=== PATIENT | female | born 1945 | race Caucasian/White ===

== ENCOUNTER 2019-11-29 06:31 | Day surgery (SDC) | payer MEDICARE, OTHER, SELFPAY ==
[2019-11-26 09:29] VITALS: BMI 29.2
[2019-11-29 06:52] VITALS: BP 147/89; PULSE 89; RESP 16; TEMP 36.6; O2SAT 94
--- NOTE | 2019-11-29 06:55 | PM.HPUD ---
H&P update H&P Update: DATE OF SURGERY/PROCEDURE: 11/29/19 DATE H&P PERFORMED: 11/02/19 H&P UPDATE INFORMATION: H&P completed within last 30 days and No changes to prior documentation PLANNED PROCEDURE: Operation Date: 11/29/19 07:30 Proposed Procedures p EGD/COLON 22043,29770/ R93.89(Not Applicable) - Angus Rodriguez MD s Colonoscopy(Not Applicable) - Angus Rodriguez MD Full H&P Perinent History: Social History: Social History Smoking and tobacco status: never smoked
[2019-11-29] MEDS: sodium chloride 0.9% 1,000 ML 30 ML (07:01)
--- NOTE | 2019-11-29 07:23 | ANES.PREANES ---
Pre-Anesthetic Assessment Pre-Anesthetic Assessment: Height/Weight: Height 1.6 m Weight 74.843 kg Temp Pulse Resp BP Pulse Ox 97.9 F 89 16 147/89 94 11/29/19 06:52 11/29/19 06:52 11/29/19 06:52 11/29/19 06:52 11/29/19 06:52 Preop Diagnosis: abn CT Proposed Procedure: Operation Date: 11/29/19 07:30 Proposed Procedures p EGD/COLON 29749,11940/ R93.89(Not Applicable) - Angus Rodriguez MD s Colonoscopy(Not Applicable) - Angus Rodriguez MD Was Beta Amrik taken within 24 hours: N/A Last intake: Intake Last Liquid Date 11/28/19 Last Liquid Time 20:00 Last Solid Date 11/28/19 Last Solid Time 07:00 Last Intake: 20:00 Exam: Pre-Anes Outpt Exam: alert, oriented x 3, clear to auscultation bilaterally and regular rate & rhythm Pulmonary: Pulmonary: None reported CV/HEM: CV/HEM: None reported : : None reported Hepatic: Hepatic: None reported GI: GI: GERD (occ) Metabolic: Metabolic: Thyroid Musc/skel: Musc/skel: OA/DJD Anesthetic Plan: ASA status: II Anesthesia: MAC Risk of > 500 ml blood loss (7ml/kg in children): No PFSH Anesthesia PFSH: Social History (Updated 11/26/19 @ 09:28 by Rajwinder Torrez RN) Smoking and tobacco status: never smoked Data Anesthesia Cardiac Studies: No Data to Display
[2019-11-29 07:56] VITALS: BP 117/70; PULSE 72; RESP 16; TEMP 37.2; O2SAT 94
[2019-11-29 08:09] VITALS: BP 129/71; PULSE 76; RESP 16; O2SAT 95
--- NOTE | 2019-11-29 08:10 | ANE.PACU ---
 Inpatient post-anesthesia follow up: Airway intact: Yes Vital signs: Temperature 98.9 F Pulse Rate [Bilate ral Radial] 76 Respiratory Rate 16 Blood Pressure [Le ft Arm] 129/71 Pulse Oximetry 95 Oxygen Delivery Me thod Room Air Oxygen Flow Rate Fraction of Inspir ed Oxygen Hydration adequate: Yes Nausea and vomiting: No Pain level: 1 Mental status: Baseline
== END 2019-11-29 08:30 | disposition home or self-care (01) ==
PROVIDERS: Family Provider Nurse Practitioner Family; Visit Provider Surgery
PROC: 0DJ08ZZ Inspection of Upper Intestinal Tract, Via Natural or Artificial Opening Endoscopic (ICD-10-PCS; CPT 43235; principal; 2019-11-29 07:30)
PROC: 0DJD8ZZ Inspection of Lower Intestinal Tract, Via Natural or Artificial Opening Endoscopic (ICD-10-PCS; CPT 45378; 2019-11-29 07:30)
DX: R93.5 Abnormal findings on diagnostic imaging of other abdominal regions, including retroperitoneum (principal); K57.30 Diverticulosis of large intestine without perforation or abscess without bleeding; K21.9 Gastro-esophageal reflux disease without esophagitis; M19.90 Unspecified osteoarthritis, unspecified site; M19.012 Primary osteoarthritis, left shoulder; M16.11 Unilateral primary osteoarthritis, right hip
CPT/HCPCS: 12345; 43235; 96365; G0121; J2704; J7030

== ENCOUNTER 2020-06-30 10:15 | Outpatient (CLI) | payer MEDICARE, OTHER, SELFPAY ==
--- NOTE | 2020-06-30 10:22 | MM_ITS ---
WS: [id number] BILATERAL DIAGNOSTIC MAMMOGRAM WITH MIAN DISPLACEMENT VIEWS. CAD PERFORMED. RIGHT breast ultrasound, limited HISTORY: UNSPEC LUMP IN RT BREAST, possible implant rupture. COMPARISON: None available. Bilateral craniocaudal and mediolateral like views are performed. Mian displacement views in CC and MLO projection also performed. Breasts composition: There are scattered areas of fibroglandular density. Triangular marker is place d over the anterior inferior RIGHT breast. There is no underlying lesion identified. With spot compre ssion views there is normal fibroglandular densities. Both implants are prepectoral and appear to be intact. No significant capsular contraction. No extravasation from the implants. The surfaces of the implants are slightly lobulated which could be due to aging. RIGHT breast ultrasound, limited. Ultrasound is directed to the palpable area of the RIGHT breast near 6:00. There is no underlying mas s. Double layer of the outer shell is intact. No stepladder sign within the implants to suggest capsu lar rupture. MM/[place] [id number] IMPRESSION: BI-RADS: 2-Benign FOLLOW-UP: 1 Year Follow-up No implant rupture identified.
== END 2020-06-30 10:16 | disposition home or self-care (01) ==
LOC: RADSHAW 10:20
PROVIDERS: PCP Nurse Practitioner Family; Visit Provider Nurse Practitioner Family
DX: N63.25 Unspecified lump in the left breast, overlapping quadrants (principal)
CPT/HCPCS: 76642; 77066

== ENCOUNTER 2021-02-16 13:39 | Emergency (ER) | payer MEDICARE, OTHER, SELFPAY ==
[2021-02-16 13:53] VITALS: BP 143/78; PULSE 88; RESP 16; TEMP 36.8; O2SAT 96; BMI 27.6
--- NOTE | 2021-02-16 14:06 | CTR_ITS ---
PROCEDURE INFORMATION: Exam: CT Abdomen And Pelvis With Contrast Exam date and time: 02/16/2021 3:07 PM Age: 76 years old Clinical indication: Abdominal pain; Localized; Prior surgery; Surgery type: Hyst; Patient HX: Right sided abd pain x 3 days TECHNIQUE: Imaging protocol: Computed tomography of the abdomen and pelvis with contrast. Total images: 229 Radiation optimization: All CT scans at this facility use at least one of these dose optimization techniques: automated exposure control; mA and/or kV adjustment per patient size (includes targeted exams where dose is matched to clinical indication); or iterative reconstruction. Contrast material: 300; Contrast volume: 95 ml; Contrast route: INTRAVENOUS (IV); COMPARISON: CT abdomen pelvis w con* [id number] 09/24/2019 11:57 AM RADIATION DOSE METRICS: Total DLP (mGy-cm): 1214.03 FINDINGS: Lungs: Limited assessment of the lung bases fails to reveal evidence for active cardiopulmonary process. Mild senile fibrosis. Liver: Within the lateral segment left hepatic lobe is a 13 mm enhancing structure that has increased in size since last evaluation 09/24/2018. Probable cavernous hemangioma; however, would recommend follow-up imaging with either three-phase computed tomography of the liver or MRI of the liver for further assessment and characterization to exclude a potential for metastatic focus. Remainder the liver otherwise unremarkable. No other hepatic mass or cystic structure identified. Gallbladder and bile ducts: Findings consistent with acute acalculous cholecystitis. The gallbladder is markedly abnormal in appearance and presentation. Diffuse gallbladder wall thickening with increased enhancement. Pericholecystic fluid. Small amount of gallbladder sludge. No formed cholelithiasis, however. No visible associated intra or extrahepatic biliary ectasia. Pancreas: Pancreas unremarkable for age. No visible pancreatic ductal ectasia. Partial fatty replaced the pancreas. Spleen: Scattered splenic calcifications of antecedent disease. Adrenal glands: Adrenal glands unremarkable. Kidneys and ureters: No hydronephrosis or perinephric fluid. No visible nephrolithiasis or visible ureterolithiasis. Rare small simple renal cortical cysts. No follow-up recommended. Stomach and bowel: Extensive diverticulosis coli without visible evidence of acute diverticulitis. Nonobstructive bowel pattern. No visible adynamic or reactive ileus. Appendix: No evidence of appendicitis. Intraperitoneal space: No visible evidence of mesenteric lymphadenitis or active mesenteritis/panniculitis. No visible pneumoperitoneum or intraperitoneal ascites. Vasculature: Portal vein patent. The abdominal aorta is nonaneurysmal. Mild arterial sclerotic disease. Lymph nodes: No current visible evidence of active mesenteric or retroperitoneal lymphadenopathy. Urinary bladder: Unremarkable as visualized. Reproductive: Status post hysterectomy. Bones/joints: No visible active or acute osseous abnormality. Scoliosis. 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 Facet arthrosis. Osteopenia. Advanced primary osteoarthritis of the right hip. Soft tissues: Bilateral breast implants. CT/CT abdomen pelvis w con* [id number] IMPRESSION: 1. Findings consistent with acute acalculous cholecystitis. 2. Within the lateral segment left hepatic lobe is a 13 mm enhancing structure that has increased in size since last evaluation 09/24/2018. Probable cavernous hemangioma; however, would recommend follow-up imaging with either three-phase computed tomography of the liver or MRI of the liver for further assessment and characterization to exclude a potential for metastatic focus. 3. Extensive diverticulosis coli without visible evidence for acute diverticulitis. 4. Other nonurgent, nonemergent, chronic, postoperative, and age related findings as detailed in text above. COMMENTS: Consistent with the [employer]'s Incidental Findings Committee white paper (J Am Andrew Radiol 2018): Any incidental renal lesion less than 1 cm or classified as too small to characterize, or any incidental cystic renal lesion characterized as simple-appearing, is likely benign. No follow-up imaging is recommended for these lesions per consensus recommendations based on imaging criteria. Radiation Dose CTDIVOL = (mGy): DLP = 1214.03 (mGy-cm)
--- NOTE | 2021-02-16 14:12 | W.ED.ABDPA2 ---
HPI - Abdominal Pain General: Chief Complaint: Abdominal Pain Stated Complaint: abd pain Time Seen by Provider: 02/16/21 13:54 History of Present Illness: HPI narrative: 76-year-old female presents to the emergency room with complaint of right lower quadrant abdominal pain has been going on for last 3 days she denies nausea or vomiting or diarrhea pain is worse with movement. She denies dysuria urgency or frequency no hematochezia or melena MD elicited complaint: abdominal pain Onset (ago): day(s) Pain Consistency: intermittent Location: RLQ Severity: moderate Quality: cramping Exacerbating factors: movement Relieving factors: nothing Associated Symptoms: Reports GI cramping and nausea; Denies anorexia, belching, bloating, change in bowel habits, change in stool character, chills, coffee ground emesis, constipation, diarrhea, dyspepsia, dysuria, excessive flatus, fever(s), heartburn, hematochezia, hematuria, hematemesis, fecal incontinence, loose stools, melena, poor appetite, syncope and vomiting Review of Systems Const: Denies: fever(s) or chills ENMT: Denies: throat pain, ear or mastoid pain, nasal discharge or nasal congestion Card: Denies: syncope Resp: Denies: dyspnea, productive cough or non-productive cough GI: Reports: nausea and GI cramping; Denies: vomiting, hematemesis, coffee ground emesis, heartburn, diarrhea, constipation, bloating, belching, excessive flatus, fecal incontinence, change in bowel habits, change in stool character, hematochezia or melena : Denies: hematuria Skin/Breast: Denies: rash or pruritus [facility] ED PFSH: Medical History Diverticulosis Hypothyroidism Surgical History H/O esophagogastroduodenoscopy 11/29/2019: Normal History of colonoscopy 11/29/2019: Severe diverticulosis sigmoid colon Social History Smoking and tobacco status: never smoked Physical Exam Const: COMMON NORMALS: no acute distress GENERAL APPEARANCE: cooperative and comfortable ORIENTATION/CONSCIOUSNESS: Yes awake, Yes oriented to person, Yes oriented to place and Yes oriented to time HENMT: COMMON NORMALS: normocephalic, atraumatic and hearing grossly normal bilaterally HEAD & SCALP: normocephalic and atraumatic Eye: COMMON NORMALS: Equal, round and reactive pupils present, EOMs intact bilaterally, conjunctivae normal and no scleral icterus CONJUNCTIVA: Yes conjunctivae normal PUPIL: Yes Equal, round and reactive pupils present Neck/C-Spine: COMMON NORMALS: no JVD Cardio: COMMON NORMALS: no JVD, regular rate, regular rhythm and No murmurs present (Cardio) RATE: regular rate RHYTHM: regular rhythm GI: COMMON NORMALS: Soft to palpation and No hepatosplenomegaly present AUSCULTATION: Yes normoactive bowel sounds PALPATION: Yes Soft to palpation, No Tenderness to palpation present (GI), No Guarding due to palpation present (GI) and Yes No hepatosplenomegaly present Extremity: COMMON NORMALS: normal to inspection, capillary refill normal, no clubbing, cyanosis or edema, no calf tenderness and no pedal edema Neuro: SENSORIUM/ORIENTATION: Yes oriented to person, Yes oriented to place and Yes oriented to time Skin: COMMON NORMALS: no rashes or lesions noted GENERAL SKIN EXAM: no rashes or lesions noted Course Vital Signs: Vital signs: Vital Signs Temperature 98.2 F 02/16/21 13:53 Pulse Rate 77 02/16/21 16:46 Respiratory Rate 18 02/16/21 16:46 Blood Pressure 135/83 02/16/21 16:46 Pulse Oximetry 92 02/16/21 16:46 MDM - Abdominal Pain MDM Narrative: Medical decision making narrative: Patient complaining of low lower abdominal pain mostly in the right lower quadrant she does not really have any upper abdominal pain negative Sarah sign repeat exam still unremarkable liver functions are normal white count is normal she does have a what looks like a simple bladder infection which is consistent with presenting complaints. However on the CT there is some concerning findings prickly around the gallbladder markedly abnormal appearance diffuse wall thickening increased enhancement there is an enhancing structure that is increased in size from her previous exam in September 2018. We will treat her for her cystitis today. Referral made to general surgery for further evaluation of the liver abnormality. Lab Data: Labs: Lab Results 02/16/21 02/16/21 02/16/21 Range/Units 14:20 14:20 15:15 WBC 6.2 (4.0-10.0) 10^3/ uL RBC 4.07 L (4.1-5.3) 10^6/u L Hgb 13.2 (11.5-15.3) g/dL Hct 38.1 (37.0-47.0) % MCV 93.6 (81-99) fL MCH 32.4 (28.0-34.0) pg MCHC 34.6 (30.0-36.0) g/dL RDW 11.9 L (12.1-15.1) % Plt Count 134 (130-400) 10^3/c mm MPV 11.5 H (7.4-10.4) fL Neut % (Auto) 70.9 % Lymph % (Auto) 17.7 % Woodward % (Auto) 9.5 % Eos % (Auto) 1.0 % Baso % (Auto) 0.3 % Neut # (Auto) 4.41 (1.8-7.7) 10^3/u L Lymph # (Auto) 1.1 (0.8-4.8) 10^3/u L Woodward # (Auto) 0.6 (0.2-0.9) 10^3/u L Eos # (Auto) 0.1 (0.0-0.8) 10^3/u L Baso # (Auto) 0.0 (0.0-0.1) 10^3/u L Nucleated RBC % (a uto) 0 % Nucleated RBCs # 0.0 /100WBC Sodium 136 (136-145) mmol/L Potassium 3.7 (3.5-5.1) mmol/L Chloride 101 (98-107) mmol/L Carbon Dioxide 23 (22-29) mmol/L Anion Gap 15.7 (5-19) BUN 11 (8-23) mg/dL Creatinine 0.7 (0.5-0.9) mg/dL GFR Calculation Not Reportable Glucose 83 (65-115) mg/dL Calculated Osmolal ity 281 L (285-295) mOsm/k g Calcium 8.7 (8.5-10.5) mg/dL Total Bilirubin 0.8 (0.15-1.2) mg/dL AST 18 (0-32) U/L ALT 13 (0-33) U/L Alkaline Phosphata se 110 H (35-105) IU/L Total Protein 7.1 (6.6-8.7) g/dL Albumin 3.8 (3.5-5.2) g/dL Globulin 3.3 (1.3-4.6) g/dL Lipase 13 (13-60) U/L Urine Color Yellow (Yellow) Urine Appearance Clear (CLEAR) Urine pH 5 (5-7) Ur Specific Gravit y 1.020 (1.005-1.030) Urine Protein Neg (Negative) Urine Glucose (UA) Norm (Normal) Urine Ketones 1+ H (Negative) Urine Blood 2+ H (Negative) Urine Nitrate Negative (Negative) Urine Bilirubin Neg (Negative) Urine Urobilinogen Norm (Negative) mg/dL Ur Leukocyte Jayla ase 1+ H (Negative) Urine RBC 0-4 H (0-2) /hpf Urine WBC 15-25 H (0-5) /hpf Ur Squamous Epith Cells 10-15 H (0-5) /hpf Amorphous Sediment Not Reportable Urine Bacteria 1+ H (NONE) /hpf Discharge Plan Discharge Patient Disposition: Home Clinical Impression: Cystitis, Abnormal finding on imaging of liver Condition: Stable Prescriptions: New Cipro 250 mg tablet 250 mg PO BID Qty: 14 RF: 0 No Action levothyroxine [Synthroid] 75 mcg Tablet 75 mcg PO DAILY@0400 RF: 0 One-A-Day Women's Complete 18 mg-400 mcg- 25 mcg Tablet 1 tab PO DAILY@0400 RF: 0 Super B Complex 1 tab PO DAILY@0400 RF: 0 Vitamin C 1 tab PO DAILY@0400 RF: 0 Vitamin D3 1 tab PO DAILY@0400 RF: 0 calcium 1 tab PO DAILY@0400 RF: 0 Discharge Orders: Discharge ED (Routine); Ordered 02/16/21 Ordered By: Octaviano Winkler Discharge Diet: Usual diet Discharge Activity: Resume usual activity Patient Instructions: Opioid Safety Activity Restrictions/Additional Instructions: Follow-up with your primary care provider if not improving Coding Level of Care Code ED Research Fellow for Dino Caballero
[2021-02-16 14:26] LABS: Basophils % 0.3 %; Eosinophils # 0.1 10^3/uL (0.0-0.8); Hematocrit 38.1 % (37.0-47.0); Hemoglobin 13.2 g/dL (11.5-15.3); Lymphocytes # 1.1 10^3/uL (0.8-4.8); Lymphocytes % 17.7 %; Mean Corpuscular HGB Conc 34.6 g/dL (30.0-36.0); Mean Corpuscular Hemoglobin 32.4 pg (28.0-34.0); Mean Corpuscular Volume 93.6 fL (81-99); Mean Platelet Volume 11.5 fL (7.4-10.4); Monocytes # 0.6 10^3/uL (0.2-0.9); Monocytes % 9.5 %; Neutrophils # 4.41 10^3/uL (1.8-7.7); Neutrophils % 70.9 %; Nucleated Red Blood Cells % 0 %; Platelet Count 134 10^3/cmm (130-400); Red Blood Count 4.07 10^6/uL (4.1-5.3); Red Cell Distribution Width 11.9 % (12.1-15.1); White Blood Count 6.2 10^3/uL (4.0-10.0)
[2021-02-16 14:48] LABS: Alanine Aminotransferase 13 U/L (0-33); Albumin Level 3.8 g/dL (3.5-5.2); Alkaline Phosphatase 110 IU/L (35-105); Anion Gap 15.7 (5-19); Aspartate Amino Transferase 18 U/L (0-32); Blood Urea Nitrogen 11 mg/dL (8-23); Calcium 8.7 mg/dL (8.5-10.5); Carbon Dioxide 23 mmol/L (22-29); Chloride 101 mmol/L (98-107); Globulin 3.3 g/dL (1.3-4.6); Glucose 83 mg/dL (65-115); Lipase 13 U/L (13-60); Osmolality Calculated 281 mOsm/kg (285-295); Potassium 3.7 mmol/L (3.5-5.1); Sodium 136 mmol/L (136-145); Total Bilirubin 0.8 mg/dL (0.15-1.2); Total Protein 7.1 g/dL (6.6-8.7)
[2021-02-16] MEDS: iohexol 300 mg/mL 100 mL Btl IV (15:29)
[2021-02-16 16:05] LABS: Add Urine Microscopic? YES; Bilirubin Urine Neg (Negative); Blood Urine 2+ (Negative); Glucose Urine UA Norm (Normal); Ketones Urine 1+ (Negative); Leukocyte Esterase Urine 1+ (Negative); Nitrate Urine Negative (Negative); Protein Urine Neg (Negative); Urine Appearance Clear (CLEAR); Urine Color Yellow (Yellow); Urobilinogen Urine Norm (Negative); pH Urine 5 (5-7)
[2021-02-16 16:16] LABS: Add Urine Culture? No; Bacteria Urine 1+ /hpf; RBC Urine 0-4 /hpf (0-2); WBC Urine 15-25 /hpf (0-5)
[2021-02-16] MEDS: cefTRIAXone 1,000 MG in lidocaine 1% 2.1 ML 1 MG IM (16:41)
[2021-02-16 16:46] VITALS: BP 135/83; PULSE 77; RESP 18; O2SAT 92
--- NOTE | 2021-02-21 09:24 | DCPLANNER ---
casino cage manager had message to schedule a follow up appointment for patient with general surgery. casino cage manager emailed patients information to both Daya and Mariam at [facility] General Surgery. Patients information would be printed and reviewed. Clinic will call patient with appointment information. casino cage manager also had message to schedule an outpatient MRI for patient. casino cage manager will get a signed order and will fax it to centralized scheduling. casino cage manager will call for appointment information.
--- NOTE | 2021-02-23 13:41 | DCPLANNER ---
Patient has a follow up appointment scheduled for Friday, February 26, 2021 at 3:[address] Brantley at [facility] General Surgery. Clinic will call patient with appointment information.
--- NOTE | 2021-02-27 15:09 | DCPLANNER ---
Patient had a follow up appointment scheduled for 02.26.21 at 3:[address] Moon at general surgery - patient did attend appointment.
== END 2021-02-16 16:47 | disposition home or self-care (01) ==
PROVIDERS: Emergency Provider Family Medicine
DX: N30.90 Cystitis, unspecified without hematuria (principal); R93.2 Abnormal findings on diagnostic imaging of liver and biliary tract
CPT/HCPCS: 74177; 80053; 81000; 81001; 83690; 85025; 87086; 96374; 96375; 99283; J0696; Q9967

== ENCOUNTER 2021-03-09 07:52 | Outpatient (CLI) | payer MEDICARE, OTHER, SELFPAY ==
--- NOTE | 2021-03-09 08:00 | MR_ITS ---
WS: [id number] MRCP (MAGNETIC RESONANCE CHOLANGIOPANCREATOGRAPHY) HISTORY: R10.9 - Unspecified abdominal pain COMPARISON: CT 02/16/2021 TECHNIQUE: Multiple sequences are performed to evaluate the intra and extrahepatic ducts. Mild gallbladder wall thickening. There is a large stone in the central gallbladder. There is a addit ional stone in the gallbladder neck. Does not appear to be within the cystic duct but very closely as sociated with the cystic duct. Cystic duct and common bile duct remain normal size. There is no pancr eatic duct abnormality. Common bile duct measures 5 mm. Mixed signal intensity 13 mm lesion in the la teral segment LEFT lobe of liver was recently described by CT. MRCP is not the study of choice to baljinder luate liver lesions. No ascites. No pleural effusions are identified. There are bilateral breast implants. No adrenal mass es. Small exophytic cysts from the mid RIGHT kidney with the largest measuring 8 mm. MR/MR MRCP [id number] IMPRESSION: 1. Cholelithiasis without acute cholecystitis or bile duct dilatation. 2. Normal common bile duct. 3. 13 mm hepatic lesion is probably hemangioma as noted on a prior CT of 2020.
== END 2021-03-09 07:53 | disposition home or self-care (01) ==
LOC: RADSHAW 07:56
PROVIDERS: PCP Nurse Practitioner Family; Visit Provider Surgery
DX: R10.9 Unspecified abdominal pain (principal); K80.20 Calculus of gallbladder without cholecystitis without obstruction; K76.9 Liver disease, unspecified
CPT/HCPCS: 74181

== ENCOUNTER 2021-03-12 07:40 | Outpatient (CLI) | payer MEDICARE, OTHER, SELFPAY ==
--- NOTE | 2021-03-12 08:00 | NM_ITS ---
WS: [id number] NUCLEAR MEDICINE HIDA SCAN WITH GALLBLADDER EJECTION FRACTION HISTORY: R10.9 - Unspecified abdominal pain COMPARISON: 02/16/2021 CT. TECHNIQUE: The patient was intravenously injected with 7.6 mCi of TC99m Mebrofenin. Immediate imaging over the right upper quadrant was followed by 5 minute image and additional images for a total of 60 minutes. Normal uptake of radiotracer throughout the liver. Activity identified in the gallbladder at 40 minutes and never distends well. Activity in the proximal small bowel was seen by 30 minutes. Good washout of the radiotracer from the liver by 60 minutes. The patient then drank 8 ounces of Ensure Plus. Ejection fraction at 60 minutes was 66%. Normal GB ej ection fraction is 35-75%. Post fatty meal symptoms: None. NM/NM hepatobiliary w phar* [id number] IMPRESSION: 1. Gallbladder never distends well with the radionuclide. Cholelithiasis was i dentified on a prior study. Findings are suspicious with cholecystitis. Partial cystic duct obstruction should be considered and this could be chronic. There is no hyperemia at the gallbladder fossa. 2. Gallbladder never distends well. The ejection fraction obtained is not accu rate.
== END 2021-03-12 07:41 | disposition home or self-care (01) ==
LOC: RAD 07:42
PROVIDERS: PCP Nurse Practitioner Family; Visit Provider Surgery
DX: R10.9 Unspecified abdominal pain (principal)
CPT/HCPCS: 78227; A9537

== ENCOUNTER 2021-07-27 03:57 | Emergency (ER) | payer MEDICARE, SELFPAY ==
[2021-07-27] VITALS (7 sets, daily range): BP systolic 137–167; BP diastolic 85–107; PULSE 73–101; RESP 16–21; TEMP 36.5; O2SAT 91–97; BMI 27.4
--- NOTE | 2021-07-27 04:16 | ECG_ITS ---
[facility] Test Date: 2021-07-27 Pat Name: Margy Yap Department: Room: Gender: Female Railroad Worker: : 1945 Requested By: Alicia Hernández Order Number: [id number] Reading MD: RAND WALTON Measurements Intervals [place] Rate: 76 P: 38 AK: 173 QRS: 19 QRSD: 78 T: 27 QT: 362 QTc: 409 Interpretive Statements SINUS RHYTHM Compared to ECG 12/30/2017 07:29:46 No significant changes Electronically Signed On 07-27-2021 15:41:22 CDT by RAND WALTON [email or web address]
--- NOTE | 2021-07-27 04:16 | XRR_ITS ---
PROCEDURE INFORMATION: Exam: XR Chest Exam date and time: 07/27/2021 4:16 AM Age: 76 years old Clinical indication: Dyspnea and shortness of breath; Prior surgery; Surgery type: Shoulder; Patient HX: Worsening SOB and dyspnea. Covid +. TECHNIQUE: Imaging protocol: XR of the chest. Views: 1 view. COMPARISON: CR Chest 2 views* [id number] 01/20/2018 8:32 AM FINDINGS: Lungs: Bibasilar opacities which could be secondary to atelectasis or pneumonia. Pleural spaces: Unremarkable. No pleural effusion. No pneumothorax. Heart/Mediastinum: Unremarkable. No cardiomegaly. Bones/joints: Unremarkable. XR/XR chest 1V portable [id number] IMPRESSION: Bibasilar opacities which could be secondary to atelectasis or pneumonia.
--- NOTE | 2021-07-27 04:23 | ED_ITS ---
Documented by User: Alicia Hernández MD 07/27/21 05:11 HPI - COVID General: Chief Complaint: COVID symptoms Stated Complaint: Covid +\Sob Time Seen by Provider: 07/27/21 04:08 Source: patient Mode of arrival: ambulatory Limitations: no limitations Triage information: Has fever, cough or shortness of breath . Exposure to COVID + person last 14 days History of Present Illness: HPI Narrative: 76-year-old female who states she been having shortness of breath over the last 2 weeks. States she had diagnosed with Covid roughly 9 days ago. States that the dyspnea is worsened over the last week. States that she had slight increase today and her son and made her came in because he is getting worried about her. She states that her dyspnea is mild in nature pulse ox was 88% on room air she is doing well here on 2 L. She denies any cough or fevers. She is in no severe distress here. Denies any vomiting or diarrhea. Denies any pain anywhere. COVID 19 common symptoms: positive dyspnea; negative fever(s), chills, body aches, headache(s), throat pain, nausea, vomiting or diarrhea COVID 19 other sytmptoms: negative chest pain COVID Results: No Data to Display Review of Systems Const: Denies: fever(s), chills, body aches or change in appetite Eyes: Denies: blurry vision or eye discomfort ENMT: Denies: throat pain or dental pain Card: Denies: chest pain Resp: Reports: dyspnea GI: Denies: abdominal pain, nausea, vomiting or diarrhea : Denies: dysuria Musc: Denies: neck pain or back pain Skin/Breast: Denies: rash Neuro: Denies: headache(s) Psych: Denies: depression David/Lymph: Denies: easy bruising All/Imm: Denies: urticaria PFSH ED PFSH: Medical History (Updated 07/27/21 @ 06:18 by Octaviano Winkler DO) COVID-19 Diverticulosis Hypothyroidism Pulmonary embolism Surgical History H/O esophagogastroduodenoscopy 11/29/2019: Normal History of colonoscopy 11/29/2019: Severe diverticulosis sigmoid colon Social History Smoking and tobacco status: never smoked Physical Exam Const: COMMON NORMALS: no acute distress, patient oriented x3 and healthy appearing HENMT: COMMON NORMALS: normocephalic and atraumatic HEAD & SCALP: normocephalic and atraumatic Eye: COMMON NORMALS: Equal, round and reactive pupils present and EOMs intact bilaterally PUPIL: Yes Equal, round and reactive pupils present Neck/C-Spine: COMMON NORMALS: full ROM and supple Chest: COMMONS NORMALS: normal inspection of the chest and normal palpation of entire chest wall Resp: COMMON NORMALS: normal respiratory effort, No retractions, No use of accessory muscles and clear to auscultation bilaterally AUSCULTATION: clear to auscultation bilaterally Cardio: COMMON NORMALS: regular rate, regular rhythm and No murmurs present (Cardio) RATE: regular rate RHYTHM: regular rhythm GI: COMMON NORMALS: Normal to inspection, nondistended, normoactive bowel sounds present, Soft to palpation, non-tender and no masses PALPATION: Yes Soft to palpation Extremity: COMMON NORMALS: normal to inspection and full ROM Neuro: COMMON NORMALS: patient oriented x3, moves all extremities and no focal motor deficits Psych: COMMON NORMALS: mental status grossly normal, Normal thought process present and cooperative THOUGHT PROCESS: Normal thought process present Skin: COMMON NORMALS: no rashes or lesions noted and no wounds GENERAL SKIN EXAM: no rashes or lesions noted Course Vital Signs: Vital signs: Vital Signs Temperature 97.7 F 07/27/21 04:11 Pulse Rate 77 07/27/21 06:34 Respiratory Rate 16 07/27/21 06:34 Blood Pressure 167/87 07/27/21 06:34 Pulse Oximetry 95 07/27/21 06:34 MDM - COVID Lab Data: Labs: Lab Results 07/27/21 07/27/21 07/27/21 04:28 04:28 04:28 WBC 4.9 10^3/uL 10^3/ uL (4.0-10.0) RBC 4.75 10^6/uL 10^6 /uL (4.1-5.3) Hgb 14.2 g/dL g/dL (11.5-15.3) Hct 42.0 % % (37.0-47.0) MCV 88.4 fl fl (81-99) MCH 29.9 pg pg (28.0-34.0) MCHC 33.8 g/dL g/dL (30.0-36.0) RDW 12.9 % % (12.1-15.1) Plt Count 149 10^3/cmm 10^3 /cmm (130-400) MPV 12.4 fL H fL (7.4-10.4) Neut % (Auto) 85.6 % % Lymph % (Auto) 7.5 % % [place] % (Auto) 5.5 % % Eos % (Auto) 0.0 % % Baso % (Auto) 0.2 % % Neut # (Auto) 4.21 10^3/uL 10^3 /uL (1.8-7.7) Lymph # (Auto) 0.4 10^3/uL L 10^ 3/uL (0.8-4.8) [place] # (Auto) 0.3 10^3/uL 10^3/ uL (0.2-0.9) Eos # (Auto) 0.0 10^3/uL 10^3/ uL (0.0-0.8) Baso # (Auto) 0.0 10^3/uL 10^3/ uL (0.0-0.1) Nucleated RBC % (a uto) 0 % % Nucleated RBCs # 0.0 /100WBC /100W BC D-Dimer 3.52 ug/mIFEU H u g/mIFEU (0-0.59) Specimen Type Sample Site ABG pH ABG pCO2 ABG pO2 ABG HCO3 ABG Base Excess Madan Test Hematocrit O2 Delivery Device O2 Liters/Min FiO2 Defensive Driving Instructor ID Sodium 138 mmol/L mmol/L (136-145) Potassium 4.1 mmol/L mmol/L (3.5-5.1) Chloride 104 mmol/L mmol/L (98-107) Carbon Dioxide 20 mmol/L L mmol/ L (22-29) Anion Gap 18.1 (5-19) BUN 22 mg/dL mg/dL (8-23) Creatinine 0.7 mg/dL mg/dL (0.5-0.9) GFR Calculation Not Reportable Glucose 102 mg/dL mg/dL (65-115) Calculated Osmolal ity 290 mOsm/kg mOsm/ kg (285-295) Lactic Acid Calcium 9.7 mg/dL mg/dL (8.5-10.5) Total Bilirubin 0.5 mg/dL mg/dL (0.15-1.2) AST 40 U/L H U/L (0-32) ALT 36 U/L H U/L (0-33) Alkaline Phosphata se 118 IU/L H IU/L (35-105) C-Reactive Protein 20.2 mg/L H mg/L (0.0-4.9) NT-Pro-B Natriuret Pep 674 pg/mL H pg/mL (0-450) Total Protein 7.0 g/dL g/dL (6.6-8.7) Albumin 3.5 g/dL g/dL (3.5-5.2) Globulin 3.5 g/dL g/dL (1.3-4.6) 07/27/21 07/27/21 04:28 04:34 WBC RBC Hgb Hct MCV MCH MCHC RDW Plt Count MPV Neut % (Auto) Lymph % (Auto) [place] % (Auto) Eos % (Auto) Baso % (Auto) Neut # (Auto) Lymph # (Auto) [place] # (Auto) Eos # (Auto) Baso # (Auto) Nucleated RBC % (a uto) Nucleated RBCs # D-Dimer Specimen Type Arterial Sample Site Radial, left ABG pH 7.47 H (7.35-7.45) ABG pCO2 28.7 mmHg L mmHg (35-45) ABG pO2 53.5 mmHg L mmHg (80.0-100.0) ABG HCO3 20.8 mmol/L L mmo l/L (22-26) ABG Base Excess -1.7 mmol/L mmol/ L (-2.0-2.0) Madan Test Pos Hematocrit 42.4 % % (37-47) O2 Delivery Device Nc O2 Liters/Min 1.0 % % FiO2 24.0 % % Defensive Driving Instructor ID [email or web address] Sodium Potassium Chloride Carbon Dioxide Anion Gap BUN Creatinine GFR Calculation Glucose Calculated Osmolal ity Lactic Acid 2.0 mmol/L mmol/L (0.5-2.2) Calcium Total Bilirubin AST ALT Alkaline Phosphata se C-Reactive Protein NT-Pro-B Natriuret Pep Total Protein Albumin Globulin Imaging Data: CXR: Attestation: I personally reviewed and interpreted this imaging study as follows: Radiologist's impression: [address] [place] [address] XRay Report Signed Patient: Margy Yap Unit #: [id number] : 1945 Age/Sex: 76 / F ADM Date: 07/27/21 Loc: ER Room/Bed: Attending Dr: Ordering Provider/Ordering MD: Alicia Hernández MD Date of Service: 07/27/21 Procedure(s): XR chest 1V portable [id number] Accession Number(s): [id number] Report Number: [id number] PROCEDURE INFORMATION: Exam: XR Chest Exam date and time: 07/27/2021 4:16 AM Age: 76 years old Clinical indication: Dyspnea and shortness of breath; Prior surgery; Surgery type: Shoulder; Patient HX: Worsening SOB and dyspnea. Covid +. TECHNIQUE: Imaging protocol: XR of the chest. Views: 1 view. COMPARISON: CR Chest 2 views* [id number] 01/20/2018 8:32 AM FINDINGS: Lungs: Bibasilar opacities which could be secondary to atelectasis or pneumonia. Pleural spaces: Unremarkable. No pleural effusion. No pneumothorax. Heart/Mediastinum: Unremarkable. No cardiomegaly. Bones/joints: Unremarkable. XR/XR chest 1V portable [id number] IMPRESSION: Bibasilar opacities which could be secondary to atelectasis or pneumonia. Dictated By: Michael Hernandez Signed By: Michael Hernandez Signed Date/Time: 07/27/21508 DD/ 6 EKG Data: EKG 1: Attestation: I personally reviewed and interpreted this EKG as follows: EKG interpretation date: 07/27/21 EKG interpretation time: 04:40 Interpretation: nsr hr [address] or t wave abnormalities qrs 78 qtc 393 COVID Results: No Data to Display Discharge Plan Discharge Patient Disposition: Home Clinical Impression: Pulmonary embolism, COVID-19 Condition: Stable Prescriptions: New Eliquis DVT-PE Treat 30D Start 5 mg (74 tabs) tablets,dose pack See Rx Instructions .ROUTE .COMPLEX Qty: 74 RF: 0 No Action levothyroxine [Synthroid] 75 mcg Tablet 75 mcg PO DAILY@0400 RF: 0 One-A-Day Women's Complete 18 mg-400 mcg- 25 mcg Tablet 1 tab PO DAILY@0400 RF: 0 Super B Complex 1 tab PO DAILY@0400 RF: 0 Vitamin C 1 tab PO DAILY@0400 RF: 0 Vitamin D3 1 tab PO DAILY@0400 RF: 0 calcium 1 tab PO DAILY@0400 RF: 0 Discharge Orders: Discharge ED (Routine); Ordered 07/27/21 Ordered By: Octaviano Winkler Other Ambulatory Orders: DME: Oxygen (Order) Location: None Selected Ordered By: Octaviano Winkler Patient Instructions: Opioid Safety Sign Out Sign Out Data: Patient Sign Out occurred on 07/27/21 at 06:19. Patient's care was discussed, and care was transferred from to Octaviano Winkler DO. Coding Level of Care Code ED Banking Services Advisor for Chg Fwd Exam Comprehensive Documented by User: Octaviano Winkler DO 07/27/21 06:38 HPI - COVID General: Chief Complaint: COVID symptoms Stated Complaint: Covid +\Sob Time Seen by Provider: 07/27/21 04:08 COVID Results: No Data to Display [facility] ED PFSH: Medical History (Updated 07/27/21 @ 06:18 by Octaviano Winkler DO) COVID-19 Diverticulosis Hypothyroidism Pulmonary embolism Surgical History H/O esophagogastroduodenoscopy 11/29/2019: Normal History of colonoscopy 11/29/2019: Severe diverticulosis sigmoid colon Social History Smoking and tobacco status: never smoked Course Vital Signs: Vital signs: Vital Signs Temperature 97.7 F 07/27/21 04:11 Pulse Rate 77 09/24/21 06:34 Respiratory Rate 16 07/27/21 06:34 Blood Pressure 167/87 07/27/21 06:34 Pulse Oximetry 95 07/27/21 06:34 MDM - COVID MDM Narrative: Medical decision making narrative: Assumed care at change of shift laboratory test EKG and imaging reviewed as on the chart discussed with the [facility] radiologist patient is a low clot burden pulmonary embolism with no evidence of right heart strain. She is managing oxygen well with minor supplementation. She is recovering from Covid as evidenced by the findings on the CT and known laboratory history. 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 Lovenox given in the emergency room started on typical outpatient treatment course with Eliquis. Discussed bleeding risk with the patient and her family member. Follow-up with primary care doctor within the next 2 weeks to assess for the length of course of Eliquis treatment. Return if has further problems. Lab Data: Labs: Lab Results 07/27/21 07/27/21 07/27/21 04:28 04:28 04:28 WBC 4.9 10^3/uL 10^3/ uL (4.0-10.0) RBC 4.75 10^6/uL 10^6 /uL (4.1-5.3) Hgb 14.2 g/dL g/dL (11.5-15.3) Hct 42.0 % % (37.0-47.0) MCV 88.4 fl fl (81-99) MCH 29.9 pg pg (28.0-34.0) MCHC 33.8 g/dL g/dL (30.0-36.0) RDW 12.9 % % (12.1-15.1) Plt Count 149 10^3/cmm 10^3 /cmm (130-400) MPV 12.4 fL H fL (7.4-10.4) Neut % (Auto) 85.6 % % Lymph % (Auto) 7.5 % % [place] % (Auto) 5.5 % % Eos % (Auto) 0.0 % % Baso % (Auto) 0.2 % % Neut # (Auto) 4.21 10^3/uL 10^3 /uL (1.8-7.7) Lymph # (Auto) 0.4 10^3/uL L 10^ 3/uL (0.8-4.8) [place] # (Auto) 0.3 10^3/uL 10^3/ uL (0.2-0.9) Eos # (Auto) 0.0 10^3/uL 10^3/ uL (0.0-0.8) Baso # (Auto) 0.0 10^3/uL 10^3/ uL (0.0-0.1) Nucleated RBC % (a uto) 0 % % Nucleated RBCs # 0.0 /100WBC /100W BC D-Dimer 3.52 ug/mIFEU H u g/mIFEU (0-0.59) Specimen Type Sample Site ABG pH ABG pCO2 ABG pO2 ABG HCO3 ABG Base Excess Madan Test Hematocrit O2 Delivery Device O2 Liters/Min FiO2 Defensive Driving Instructor ID Sodium 138 mmol/L mmol/L (136-145) Potassium 4.1 mmol/L mmol/L (3.5-5.1) Chloride 104 mmol/L mmol/L (98-107) Carbon Dioxide 20 mmol/L L mmol/ L (22-29) Anion Gap 18.1 (5-19) BUN 22 mg/dL mg/dL (8-23) Creatinine 0.7 mg/dL mg/dL (0.5-0.9) GFR Calculation Not Reportable Glucose 102 mg/dL mg/dL (65-115) Calculated Osmolal ity 290 mOsm/kg mOsm/ kg (285-295) Lactic Acid Calcium 9.7 mg/dL mg/dL (8.5-10.5) Total Bilirubin 0.5 mg/dL mg/dL (0.15-1.2) AST 40 U/L H U/L (0-32) ALT 36 U/L H U/L (0-33) Alkaline Phosphata se 118 IU/L H IU/L (35-105) C-Reactive Protein 20.2 mg/L H mg/L (0.0-4.9) NT-Pro-B Natriuret Pep 674 pg/mL H pg/mL (0-450) Total Protein 7.0 g/dL g/dL (6.6-8.7) Albumin 3.5 g/dL g/dL (3.5-5.2) Globulin 3.5 g/dL g/dL (1.3-4.6) 07/27/21 07/27/21 04:28 04:34 WBC RBC Hgb Hct MCV MCH MCHC RDW Plt Count MPV Neut % (Auto) Lymph % (Auto) [place] % (Auto) Eos % (Auto) Baso % (Auto) Neut # (Auto) Lymph # (Auto) [place] # (Auto) Eos # (Auto) Baso # (Auto) Nucleated RBC % (a uto) Nucleated RBCs # D-Dimer Specimen Type Arterial Sample Site Radial, left ABG pH 7.47 H (7.35-7.45) ABG pCO2 28.7 mmHg L mmHg (35-45) ABG pO2 53.5 mmHg L mmHg (80.0-100.0) ABG HCO3 20.8 mmol/L L mmo l/L (22-26) ABG Base Excess -1.7 mmol/L mmol/ L (-2.0-2.0) Madan Test Pos Hematocrit 42.4 % % (37-47) O2 Delivery Device Nc O2 Liters/Min 1.0 % % FiO2 24.0 % % Defensive Driving Instructor ID [email or web address] Sodium Potassium Chloride Carbon Dioxide Anion Gap BUN Creatinine GFR Calculation Glucose Calculated Osmolal ity Lactic Acid 2.0 mmol/L mmol/L (0.5-2.2) Calcium Total Bilirubin AST ALT Alkaline Phosphata se C-Reactive Protein NT-Pro-B Natriuret Pep Total Protein Albumin Globulin COVID Results: No Data to Display Discharge Plan Discharge Patient Disposition: Home Clinical Impression: Pulmonary embolism, COVID-19 Condition: Stable Prescriptions: [place] DVT-PE Treat 30D Start 5 mg (74 tabs) tablets,dose pack See Rx Instructions .ROUTE .COMPLEX Qty: 74 RF: 0 No Action levothyroxine [Synthroid] 75 mcg Tablet 75 mcg PO DAILY@0400 RF: 0 One-A-Day Women's Complete 18 mg-400 mcg- 25 mcg Tablet 1 tab PO DAILY@0400 RF: 0 Super B Complex 1 tab PO DAILY@0400 RF: 0 Vitamin C 1 tab PO DAILY@0400 RF: 0 Vitamin D3 1 tab PO DAILY@0400 RF: 0 calcium 1 tab PO DAILY@0400 RF: 0 Discharge Orders: Discharge ED (Routine); Ordered 07/27/21 Ordered By: Octaviano Winkler Other Ambulatory Orders: DME: Oxygen (Order) Location: None Selected Ordered By: Octaviano Winkler Patient Instructions: Opioid Safety Sign Out Sign Out Data: Patient Sign Out occurred on 07/27/21 at 06:19. Patient's care was discussed, and care was transferred from to Octaviano Winkler DO. Coding Level of Care Code ED Banking Services Advisor for Dino Fwd Exam Comprehensive
[2021-07-27 04:32] LABS: Basophils % 0.2 %; Hemoglobin 14.2 g/dL (11.5-15.3); Lymphocytes # 0.4 10^3/uL (0.8-4.8); Lymphocytes % 7.5 %; Mean Corpuscular HGB Conc 33.8 g/dL (30.0-36.0); Mean Corpuscular Hemoglobin 29.9 pg (28.0-34.0); Mean Corpuscular Volume 88.4 fl (81-99); Mean Platelet Volume 12.4 fL (7.4-10.4); Monocytes # 0.3 10^3/uL (0.2-0.9); Monocytes % 5.5 %; Neutrophils # 4.21 10^3/uL (1.8-7.7); Neutrophils % 85.6 %; Nucleated Red Blood Cells % 0 %; Platelet Count 149 10^3/cmm (130-400); Red Blood Count 4.75 10^6/uL (4.1-5.3); Red Cell Distribution Width 12.9 % (12.1-15.1); White Blood Count 4.9 10^3/uL (4.0-10.0)
[2021-07-27 04:43] LABS: ABG PCO2 28.7 mmHg (35-45); ABG PH Result 7.47 (7.35-7.45); Arterial Blood Gas Hematocrit 42.4 % (37-47); Base Excess ABG -1.7 mmol/L (-2.0-2.0); Blood Gas Allen Test Pos; Blood Gas Sample Site Radial, left; Blood Gas Sample Type Arterial; HCO3 ABG 20.8 mmol/L (22-26); Oxygen Device NC; PO2 ABG 53.5 mmHg (80.0-100.0)
[2021-07-27 04:59] LABS: D Dimer 3.52 ug/mIFEU (0-0.59)
[2021-07-27 05:03] LABS: Alanine Aminotransferase 36 U/L (0-33); Albumin Level 3.5 g/dL (3.5-5.2); Alkaline Phosphatase 118 IU/L (35-105); Anion Gap 18.1 (5-19); Aspartate Amino Transferase 40 U/L (0-32); Blood Urea Nitrogen 22 mg/dL (8-23); C Reactive Protein 20.2 mg/L (0.0-4.9); Calcium 9.7 mg/dL (8.5-10.5); Carbon Dioxide 20 mmol/L (22-29); Chloride 104 mmol/L (98-107); Creatinine Clr Calc Pharmacy 55.3748; Globulin 3.5 g/dL (1.3-4.6); Glucose 102 mg/dL (65-115); NT Pro B Type Natriuretic Pept 674 pg/mL (0-450); Osmolality Calculated 290 mOsm/kg (285-295); Potassium 4.1 mmol/L (3.5-5.1); Sodium 138 mmol/L (136-145); Total Bilirubin 0.5 mg/dL (0.15-1.2)
--- NOTE | 2021-07-27 05:15 | CTR_ITS ---
PROCEDURE INFORMATION: Exam: CTA Chest With Contrast Exam date and time: 07/27/2021 5:15 AM Age: 76 years old Clinical indication: Dyspnea and shortness of breath; Prior surgery; Surgery type: Breast augmentation. ; Patient HX: SOB and dyspnea. Elevated d dimer. Covid + TECHNIQUE: Imaging protocol: Computed tomographic angiography of the chest with contrast. 3D rendering (Not supervised by radiologist): MIP and/or 3D reconstructed images were created by the technologist. Radiation optimization: All CT scans at this facility use at least one of these dose optimization techniques: automated exposure control; mA and/or kV adjustment per patient size (includes targeted exams where dose is matched to clinical indication); or iterative reconstruction. Contrast material: OMNI 350; Contrast volume: 53 ml; Contrast route: INTRAVENOUS (IV); COMPARISON: CR (CHEST, ) 07/27/2021 4:24 AM RADIATION DOSE METRICS: Total DLP (mGy-cm): 478.7 FINDINGS: Pulmonary arteries: Normal. No pulmonary emboli. Aorta: No aortic dissection. Lungs: Filling defects are present in multiple segmental branches of the right lower lobe. Small clot burden. No right heart strain. Hazy bilateral pulmonary opacities which are consistent with COVID-19. Pleural spaces: Unremarkable. No pneumothorax. No pleural effusion. Heart: RV/LV ratio = 0.8 Lymph nodes: Calcified lymph nodes are present, secondary to prior granulomatous disease. Bones/joints: Unremarkable. No acute fracture. Soft tissues: Unremarkable. Other findings: . CT/CT angio chest PE protcl [id number] IMPRESSION: 1. Acute right lower lobe pulmonary emboli with small clot burden, no right heart strain. 2. Hazy bilateral pulmonary opacities which are consistent with COVID-19. 3. No aortic dissection. Radiation Dose CTDIVOL = (mGy): DLP = 478.7 (mGy-cm)
[2021-07-27] MEDS: iohexol 350 mg/mL 100 mL Btl IV (05:43)
[2021-07-27] MEDS: enoxaparin 80 mg/0.8 mL Syringe 70 MG SUBCUT (06:16)
== END 2021-07-27 07:30 | disposition home or self-care (01) ==
PROVIDERS: Emergency Medicine; Emergency Provider Family Medicine; PCP Nurse Practitioner Family
DX: U07.1 COVID-19 (principal); I26.99 Other pulmonary embolism without acute cor pulmonale; Z86.711 Personal history of pulmonary embolism
CPT/HCPCS: 36600; 71045; 71275; 80053; 82803; 83605; 83880; 85025; 85378; 86140; 93005; 96372; 99284; J1650; Q9967

== ENCOUNTER 2021-09-05 15:07 | Outpatient (CLI) | payer MEDICARE, SELFPAY ==
--- NOTE | 2021-09-05 15:16 | XR_ITS ---
WS: [id number] CHEST 2 VIEWS HISTORY: PINA, rales on exam COMPARISON: 07/27/2021 Lungs: Since the prior examination the interstitium is slightly more prominent and thickened bilatera lly but greatest in the LEFT lower lung field. Mild blunting of the costophrenic angles. Cardiac size: Normal. Mediastinum/Aorta: Mild atherosclerosis aorta. Bones: Osteopenia. Prior rotator cuff repair on the RIGHT. Advanced degenerative spondylitic changes in the thoracic spine. XR/XR chest 2V* [id number] IMPRESSION: Mild progression of the interstitial thickening and pneumonitis bilaterally but greatest in the LEFT lower lung de jesus.
== END 2021-09-05 15:08 | disposition home or self-care (01) ==
PROVIDERS: PCP Family Medicine; Visit Provider Family Medicine
DX: R06.09 Other forms of dyspnea (principal); J18.9 Pneumonia, unspecified organism
CPT/HCPCS: 71046

== ENCOUNTER → 2021-10-16 10:37 | Outpatient (BNVA) | payer MEDICARE, OTHER, SELFPAY | PROVIDERS: PCP Family Medicine; Visit Provider Family Medicine | DX: E03.9 Hypothyroidism, unspecified (principal); I26.99 Other pulmonary embolism without acute cor pulmonale; R79.89 Other specified abnormal findings of blood chemistry | CPT/HCPCS: 80053; 84443 ==

== ENCOUNTER → 2022-10-16 11:59 | Outpatient (BNVA) | payer MEDICARE, OTHER, SELFPAY | PROVIDERS: PCP Family Medicine; Visit Provider Family Medicine | DX: E03.9 Hypothyroidism, unspecified (principal); R79.89 Other specified abnormal findings of blood chemistry; U07.1 COVID-19 | CPT/HCPCS: 80053; 84439; 84443 ==

== ENCOUNTER → 2023-04-22 13:28 | Outpatient (BNVA) | payer MEDICARE, OTHER, SELFPAY | PROVIDERS: PCP Family Medicine; Visit Provider Family Medicine | DX: E03.9 Hypothyroidism, unspecified (principal); R79.89 Other specified abnormal findings of blood chemistry; U07.1 COVID-19 | CPT/HCPCS: 80053; 80061; 84439; 84443; 85025 ==

== ENCOUNTER → 2023-10-22 11:32 | Outpatient (BNVA) | payer MEDICARE, OTHER, SELFPAY | PROVIDERS: PCP Family Medicine; Visit Provider Family Medicine | DX: E03.9 Hypothyroidism, unspecified (principal) | CPT/HCPCS: 80048; 84439; 84443; 85025 ==

== ENCOUNTER → 2024-04-20 11:15 | Outpatient (BNVA) | payer MEDICARE, OTHER, SELFPAY | PROVIDERS: PCP Family Medicine; Visit Provider Family Medicine | DX: E03.9 Hypothyroidism, unspecified (principal); U07.1 COVID-19 | CPT/HCPCS: 80053; 80061; 84439; 84443; 85025 ==

== ENCOUNTER → 2024-11-29 09:09 | Outpatient (BNVA) | payer MEDICARE, OTHER, SELFPAY | PROVIDERS: PCP Family Medicine; Visit Provider Specialist | DX: Z96.641 Presence of right artificial hip joint (principal); M25.551 Pain in right hip; M53.3 Sacrococcygeal disorders, not elsewhere classified; G89.29 Other chronic pain | CPT/HCPCS: 73502; 99204 ==

== ENCOUNTER 2024-12-14 07:42 | Outpatient (CLI) | payer MEDICARE, OTHER, SELFPAY ==
--- NOTE | 2024-12-14 08:00 | NM_ITS ---
WS: [id number] NUCLEAR MEDICINE BONE SCAN 3 phase Radiopharmaceutical: 24.2 Tc-99m MDP mCi IV Injection site: Antecubital Postinjection imaging delay: 2 hr CLINICAL INFORMATION: post hip replacement COMPARISON: Hip radiograph 11/29/2024 FINDINGS: Three-phase bone scan Prior postoperative changes RIGHT NANCI. Osteopenia. Normal symmetric blood flow and blood pool images with attention to the RIGHT NANCI. No significant bony activity on the delayed imaging to indicate loosening or osteomyelitis. Focal punctate areas of activity involving the RIGHT dorsal lower thoracic spine and LEFT dorsal lower lumbar spine most likely degenerative. Thoracolumbar scoliosis. Bilateral THAs. Soft tissue contours: Normal. Kidneys: Normal. Other findings: Degenerative type uptake both AC joints. Thoracolumbar scoliosis. Focal punctate uptake NM/NM bone 3 phase [id number] IMPRESSION: 1. Normal three-phase bone scan RIGHT NANCI. 2. Punctate foci of activity in the lower thoracic spine approximately T12 and L5 nonspecific but most likely degenerative especially if no history of malign lisa. This can be further evaluated with lumbar spine MRI to include T11 and T1 2 especially if back pain. No recent lumbar spine imaging
== END 2024-12-14 07:43 | disposition home or self-care (01) ==
PROVIDERS: Visit Provider Specialist
DX: M25.551 Pain in right hip (principal); R93.7 Abnormal findings on diagnostic imaging of other parts of musculoskeletal system; M41.85 Other forms of scoliosis, thoracolumbar region; R93.89 Abnormal findings on diagnostic imaging of other specified body structures; Z98.890 Other specified postprocedural states; M85.88 Other specified disorders of bone density and structure, other site
CPT/HCPCS: 78315; A9561

== ENCOUNTER → 2025-01-12 09:44 | Outpatient (BNVA) | payer MEDICARE, OTHER, SELFPAY | PROVIDERS: Visit Provider Specialist | DX: M25.551 Pain in right hip (principal); G89.29 Other chronic pain; Z96.641 Presence of right artificial hip joint | CPT/HCPCS: 99213 ==